=== PATIENT | female | born 1960 | race Caucasian/White ===

== ENCOUNTER → 2017-04-01 | Day surgery (SDC) | payer OTHER ==
[~2017-04-01] MED LIST: BYSTOLIC10 MG PO; ESTROGEL93 GM PV; LORTAB 10-5001 EACH PO; PHENERGAN25 MG
--- NOTE | ~2017-04-01 | OR ---
Unit #: [id number] #: [id number] Patient: DELLA GROVER I [id number] [address] [place], [place] [address] [id number] MR#: [id number] NAME: DELLA GROVER I. ROOM: Date of Procedure: 04/01/2017 Admission Date: 04/01/2017 Surgeon: Bert Martin M.D. : 1960 Attending Physician: Bert Martin M.D. Primary Care Physician: Amisha Terrazas M.D. OPERATIVE REPORT PREOPERATIVE DIAGNOSIS Screening colonoscopy. POSTOPERATIVE DIAGNOSIS Screening colonoscopy. PROCEDURE PERFORMED Colonoscopy to cecum. ANESTHESIA Monitored anesthesia care. FINDINGS The patient was found to have rare sigmoid diverticula. Mild internal hemorrhoids. SPECIMENS None. COMPLICATIONS None apparent. CONDITION The patient tolerated the procedure well. INDICATIONS FOR PROCEDURE The patient is a 56-year-old white female, who presents at this time for screening colonoscopy. DESCRIPTION OF PROCEDURE After obtaining informed consent, the patient was brought to the endoscopy suite. After adequate monitored anesthesia care, had the colonoscope placed through the anus and advanced to the level of the cecum without difficulty with lumen always in view. The cecum was normal as was the ileocecal valve. The ascending colon was normal as was the hepatic flexure, transverse colon, splenic flexure, and descending colon. The sigmoid colon had an occasional rare shallow diverticulum present. The rectosigmoid and rectum were all within normal limits. On retroflexing into the anorectal junction, the patient had some mild internal hemorrhoids. The scope was removed without difficulty. On digital examination, the patient had good sphincter tone. No masses palpable. The patient went from the endoscopy suite to the recovery area in stable Unit #: [id number] #: [id number] Patient: DELLA GROVER I condition. RECOMMENDATIONS High-fiber diet, lots of liquids, tucks or wipes p.r.n. Followup as needed. Dictated by... Colin Isabel/gurmeet TD: 04/02/2017 00:49 JOB #: [id number] [facility] OPERATIVE REPORT Page 1 of 1 X Bert Martin MD OPERATIVE NOTE
== END | disposition home or self-care (01) ==
LOC: COPS 08:41
DX: Z12.11 Encounter for screening for malignant neoplasm of colon (principal); K57.30 Diverticulosis of large intestine without perforation or abscess without bleeding; K64.8 Other hemorrhoids; E11.9 Type 2 diabetes mellitus without complications; I10 Essential (primary) hypertension; Z80.0 Family history of malignant neoplasm of digestive organs; Z79.899 Other long term (current) drug therapy; Z90.710 Acquired absence of both cervix and uterus; Z98.890 Other specified postprocedural states
CPT/HCPCS: 82947; J2250